=== PATIENT | female | born 1970 | race Caucasian/White ===

== ENCOUNTER 2019-05-01 10:29 | Outpatient (CLI) | payer OTHER, SELFPAY ==
--- NOTE | 2019-05-01 10:44 | MM_ITS ---
WS: [id number] BILATERAL DIGITAL SCREENING MAMMOGRAPHY WITH CAD CLINICAL INFORMATION: SCREENING HISTORY: Screening mammogram. No current complaints. COMPARISON: April 15, 2018 TECHNIQUE: Bilateral CC and MLO views. FINDINGS: The breasts are composed of heterogeneous fibroglandular density tissue, which can limit the detectio n of small underlying mass lesions. Postoperative changes bilateral breast implants. Lucent centered calcifications. No suspicious mass, asymmetry, calcifications, or architectural distortion. No eviden ce of malignancy. MM/[id number] IMPRESSION: BI-RADS: 2-Benign FOLLOW UP: 1 Year Follow-up Recommend return to annual screening mammography.
== END 2019-05-01 10:30 | disposition home or self-care (01) ==
LOC: RADSHAW 10:36
PROVIDERS: Family Provider Family Medicine; PCP Family Medicine; Visit Provider Family Medicine
DX: Z12.31 Encounter for screening mammogram for malignant neoplasm of breast (principal)
CPT/HCPCS: 77067

== ENCOUNTER 2020-05-13 10:01 | Outpatient (CLI) | payer OTHER, SELFPAY ==
--- NOTE | 2020-05-13 10:06 | MM_ITS ---
WS: [id number] BILATERAL DIGITAL SCREENING MAMMOGRAM WITH CAD CLINICAL INFORMATION: SCREENING HISTORY: Screening mammogram. No current complaints. COMPARISON: May 01, 2019 TECHNIQUE: Bilateral CC and MLO. FINDINGS: Intact bilateral breast implants. The breast are composed of extremely dense tissue, which can limit the detection of small underlying mass lesions. No suspicious focal mass, asymmetry, calcif ications, or architectural distortion. No evidence of malignancy. Punctate and lucent centered calcif ications. MM/[id number] IMPRESSION: BI-RADS: 2-Benign FOLLOW UP: 1 Year Follow-up Recommend return to annual screening mammography.
== END 2020-05-13 10:02 | disposition home or self-care (01) ==
LOC: RADSHAW 10:05
PROVIDERS: Family Provider Family Medicine; PCP Family Medicine; Visit Provider Family Medicine
DX: Z12.31 Encounter for screening mammogram for malignant neoplasm of breast (principal)
CPT/HCPCS: 77067

== ENCOUNTER 2020-12-21 09:58 | Outpatient (CLI) | payer BC, SELFPAY ==
--- NOTE | 2020-12-21 10:06 | MM_ITS ---
WS: [id number] DIAGNOSTIC RIGHT DIGITAL MAMMOGRAM WITH implant displacement views and CAD RIGHT breast ultrasound, limited HISTORY: RIGHT BLOODY NIPPLE DISCHARGE COMPARISON: 05/13/2020, 05/01/2019, 04/15/2018 Technique: CC, MLO and ML views. Implant displacement views. RIGHT CC spot compression view Breast composition: The breasts are heterogeneously dense, which may obscure small masses. Large por tions of the RIGHT breast is being obscured by the breast implant. A few calcification noted along th e wall of the implant. There is dense fibroglandular tissue along the anterior breast but similar to prior studies. No nipple retraction. There are also a few benign calcifications in the medial RIGHT b reast. RIGHT breast ultrasound, limited. Ultrasound is directed along the anterior breast and around the implant and axilla. There are mildly prominent ducts posterior to the nipple. There is a small amount of debris in these ducts but no mass . The duct with the debris is in the upper inner quadrant at 2:00. MM/[id number] IMPRESSION: BI-RADS: 3-Probably Benign FOLLOW UP: See Report There is debris in one of the ducts in the upper inner quadrant of the RIGHT br east. No increased vascularity identified. As the patient is experiencing new b loody discharge surgical evaluation is recommended.
== END 2020-12-21 09:59 | disposition home or self-care (01) ==
LOC: RADSHAW 10:03
PROVIDERS: PCP Family Medicine; Visit Provider Family Medicine
DX: N64.52 Nipple discharge (principal)
CPT/HCPCS: 76642; 77065